=== PATIENT | female | born 2000 | race Caucasian/White ===

== ENCOUNTER 2019-07-11 18:47 | Emergency (ER) | payer OTHER ==
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
[2019-07-11 19:57] VITALS: BP 99/73
== END 2019-07-11 20:00 | disposition home or self-care (01) ==
LOC: ED 18:47
DX: S61.215A Laceration without foreign body of left ring finger without damage to nail, initial encounter (principal); W26.0XXA Contact with knife, initial encounter; Y92.009 Unspecified place in unspecified non-institutional (private) residence as the place of occurrence of the external cause
CPT/HCPCS: 12001; 99281

== ENCOUNTER 2021-11-09 22:38 | Emergency (ER) | payer OTHER ==
[2021-11-09 22:48] VITALS: BP 107/75
--- NOTE | 2021-11-09 23:27 | XRAY Report ---
PROCEDURE: Foot 3 View LT, x-ray INDICATIONS: Trauma TECHNIQUE: 3 views of the foot were acquired. COMPARISON: None FINDINGS: Bones: No fractures or dislocations. No suspicious bony lesions. Soft tissues: No tibiotalar joint effusion. Achilles tendon appears normal. IMPRESSION: Unremarkable left foot radiographs Reviewed by: Michael Vu MD on 11/09/2021 10:26 PM [facility] Approved by: Michael Vu MD on 11/09/2021 10:26 PM [facility] Station ID: [id number]
--- NOTE | 2021-11-09 23:32 | ED Physician Documentation ---
PD HPI LOWER EXT INJURY - Stated complaint Stated Complaint: LT FOOT INJ/PX - Chief complaint Chief Complaint: Ext Problem - History obtained from History obtained from: Patient - History of Present Illness PD HPI LOW EXT INJURY LOCATION: Left, Foot Type of injury: Crush Where injury occurred: Home Timing - onset: Enter time (22:00), Today Timing - details: Abrupt onset Pain level now: 8 Improved by: Rest Worsened by: Moving, Palpating Associated symptoms: Swelling Recently seen: Not recently seen - Additional information Additional information: at approximately 10 PM tonight, patient dropped a cast-iron [place] oven on her left foot, sustaining crush injury to the left foot. Unable to weight-bear due to pain Review of Systems Musculoskeletal: reports: Extremity pain, Extremity swelling, Pain with weight bearing Neurologic: denies: Focal weakness, Numbness PD PAST MEDICAL HISTORY - Past Medical History Past Medical History: Yes Neuro: Migraines Psych: Anxiety Other Past Medical History: runner's knee, insomnia - Past Surgical History Past Surgical History: No - Present Medications Home Medications: Ambulatory Orders Medication Instructions Recorded Confirmed HYDROcod/ACETAM 5/325 [[place] 5/325] 1 - 2 tablet PO Q6H PRN #14 tablet 11/09/21 Ibuprofen [Motrin] 600 mg PO Q6H PRN 11/09/21 11/09/21 Promethazine [Phenergan] 12.5 mg PO Q6H PRN 11/09/21 11/09/21 Propranolol [Inderal] 10 mg PO BID 11/09/21 11/09/21 SUMAtriptan [Imitrex] 25 mg PO DAILY 11/09/21 11/09/21 - Allergies Allergies/Adverse Reactions: Allergies Allergy/AdvReac Type Severity Reaction Status Date / Time No Known Drug Allergies Allergy Verified 07/11/19 18:54 - Social History Does the pt smoke?: No Smoking Status: Never smoker Does the pt drink ETOH?: Yes Does the pt have substance abuse?: No - Immunizations Immunizations are current?: Yes - POLST Patient has POLST: No PD ED PE NORMAL - Vitals Vital signs reviewed: Yes - General General: Alert and oriented X 3, Well developed/nourished (a), Other (appears uncomfortable due to pain) PD ED PE EXPANDED - Extremities Extremities: Other (swelling, tenderness, faint echymosis of left midfoot, dorsal surface) Results - Vitals Vitals: Vital Signs - 24 hr 11/09/21 22:44 Temperature 36.8 C Heart Rate 80 Respiratory 22 Rate Blood Pressure 107/75 O2 Saturation 99 Oxygen O2 Source Room air - Rads (name of study) left foot xrays Radiology: Prelim report reviewed, See rad report PD MEDICAL DECISION MAKING - ED course Complexity details: reviewed results, re-evaluated patient, considered differential, d/w patient ED course: presents after sustaining crush injury to left foot. xrays are without abnormalities. She is given crutches to minimize weight-bearing and PO oxycodone with rx for same for pain control. Departure - Departure Disposition: 01 Home, Self Care Clinical Impression: Crush injury of foot Condition: Good Instructions: ED Contusion Foot, ED Crutch Walking Follow-Up: ANGEL Mayers [Provider Group] (4-5 days) Prescriptions: HYDROcod/ACETAM 5/325 [[place] 5/325] 1 - 2 tablet PO Q6H PRN #14 tablet PRN Reason: Pain Comments: Your xrays do not show any evidence of fracture (no broken bones). Use the crutches for 2-3 days and then as needed (you can weight-bear as tolerated but try to minimize weight-bearing for the next 2-3 days using the crutches). Keep the foot elevated when resting, ideally at or above the level of your heart. A prescription for hydrocodone with acetaminophen (pain medication) has been electronically submitted to [facility] in [place]. Do not drive for a minimum of six hours after taking this medication (and then only if you do not feel side effect such as drowsiness). Forms: Activity restrictions Discharge Date/Time: 11/10/21 00:13
[2021-11-09] MEDS ORDERED: oxyCODONE 5 MG TABLET PO STA (23:48)
== END 2021-11-10 00:13 | disposition home or self-care (01) ==
LOC: ED 22:38
DX: S97.82XA Crushing injury of left foot, initial encounter (principal); W22.8XXA Striking against or struck by other objects, initial encounter; Y92.009 Unspecified place in unspecified non-institutional (private) residence as the place of occurrence of the external cause
CPT/HCPCS: 73630; 99283; A9270

== ENCOUNTER 2021-11-22 08:30 | Outpatient (CLI) | payer OTHER ==
--- NOTE | 2021-11-22 16:49 | MRI Report ---
PROCEDURE: Brain W/O INDICATIONS: MIGRAINE TECHNIQUE: Noncontrast axial T1 spin echo, axial T2 fast spin echo, sagittal and axial FLAIR, coronal T2 fast sp in echo, axial gradient echo, axial diffusion and ADC through the brain. COMPARISON: None. FINDINGS: Image quality: Degraded by susceptibility artifact of unknown origin. CSF Spaces: Basal cisterns are patent. No extra-axial fluid collections. Ventricles are normal in size and shape. Brain: No intracranial masses or hemorrhage. Brown/white matter interface is normal. Brainstem appe ars normal. Diffusion-weighted images demonstrate no acute ischemic insult. No chronic ischemic ins ults. Normal intravascular flow voids are present. Skull and face: Calvarium has normal marrow signal. Orbits appear normal. Sinuses: Sinuses and mastoids are clear. IMPRESSION: 1. No intracranial disease process. 2. No abnormal intracranial mass or mass effect. 3. No intracranial hemorrhage within limitations related to susceptibility artifact. Reviewed by: Alida Coyle MD, PhD on 11/22/2021 4:48 PM PST Approved by: Alida Coyle MD, PhD on 11/22/2021 4:48 PM PST Station ID: [id number]
== END 2021-11-22 08:31 | disposition home or self-care (01) ==
LOC: DI 08:30
PROVIDERS: ATTEND Physician Assistant
DX: G43.109 Migraine with aura, not intractable, without status migrainosus (principal)

== ENCOUNTER 2022-04-24 19:54 | Emergency (ER) | payer OTHER ==
[2022-04-24 20:03] VITALS: BP 111/69
== END 2022-04-24 21:57 | disposition left against medical advice (07) ==
LOC: ED 19:54
DX: Z53.21 Procedure and treatment not carried out due to patient leaving prior to being seen by health care provider (principal)

== ENCOUNTER 2023-02-18 21:31 | Emergency (ER) | payer OTHER ==
[2023-02-18 21:56] LABS: MUDS CUTOFF CONCENTRATIONS CUTOFF CONC BELOW:
[2023-02-18 21:58] LABS: BILIRUBIN,URINE NEGATIVE (NEGATIVE); GLUCOSE, URINE (UA) NEGATIVE (NEGATIVE); KETONES,URINE (UA) 15 mg/dL (NEGATIVE); LEUKOCYTE ESTERASE, URINE NEGATIVE (NEGATIVE); NITRITE,URINE POSITIVE (NEGATIVE); OCCULT BLOOD,URINE NEGATIVE (NEGATIVE); PROTEIN,URINE TRACE mg/dL (NEGATIVE); UROBILINOGEN,URINE 2 E.U./dL (NORMAL)
[2023-02-18 22:00] LABS: HCG UR QUAL NEGATIVE
[2023-02-18 22:01] LABS: CLARITY,URINE HAZY (CLEAR)
[2023-02-18 22:07] LABS: BASOPHILS % (AUTO) 0.3 %; EOSINOPHILS % (AUTO) 0.5 %; HCT - HEMATOCRIT 35.8 % (37.0-47.0); HGB - HEMOGLOBIN 11.8 g/dL (12.0-16.0); LYMPHOCYTES # (AUTO) 1.6 10^3/uL (1.5-3.5); LYMPHOCYTES % (AUTO) 26.9 %; MEAN CORPUSCULAR HEMOGLOBIN 29.3 pg (27.0-31.0); MEAN CORPUSCULAR VOLUME 88.8 fL (81.0-99.0); MEAN PLATELET VOLUME 11.9 fL (7.9-10.8); MONOCYTES # (AUTO) 0.5 10^3/uL (0.0-1.0); MONOCYTES % (AUTO) 8.6 %; NEUTROPHILS # (AUTO) 3.7 10^3/uL (1.5-6.6); NEUTROPHILS % (AUTO) 63.5 %; PLT - PLATELET COUNT 170 10^3/uL (130-450); RED BLOOD COUNT 4.03 10^6/uL (4.20-5.40); RED CELL DISTRIBUTION WIDTH 12.6 % (12.0-15.0); WHITE BLOOD COUNT 5.8 x10^3/uL (4.8-10.8)
[2023-02-18 22:08] LABS: AMPHETAMINE SCREEN,URINE NEGATIVE (NEGATIVE); BENZODIAZEPINES SCREEN, URINE NEGATIVE (NEGATIVE); COCAINE SCREEN URINE NEGATIVE (NEGATIVE); METHAMPHETAMINES SCREEN, URINE NEGATIVE (NEGATIVE); OPIATE SCREEN, URINE NEGATIVE (NEGATIVE); THC CANNABINOID SCREEN, URINE NEGATIVE (NEGATIVE); TRICYCLIC ANTIDEPRESSANT,URINE NEGATIVE (NEGATIVE)
[2023-02-18 22:09] LABS: BACTERIA,URINE Many /HPF (None Seen); BARBITURATE SCREEN,UR NEGATIVE (NEGATIVE); METHADONE SCREEN, URINE NEGATIVE (NEGATIVE); MUCUS,URINE Few Strands; OXYCODONE SCREEN, URINE NEGATIVE (NEGATIVE); PROPOXYPHENE SCREEN, URINE NEGATIVE (NEGATIVE); RBC,URINE 0-5 /HPF (0-5); SQUAMOUS EPITHELIAL CELL,UR MANY Squamous (<= Few)
[2023-02-18 22:21] LABS: ACETAMINOPHEN < 10 ug/mL (10-30); ETOH - ETHANOL < 5.0 mg/dL; SALICYLATE < 6.0 mg/dL
[2023-02-18 22:45] LABS: ALBUMIN 4.4 g/dL (3.2-5.5); ALBUMIN/GLOBULIN RATIO 1.4 (1.0-2.2); ALKALINE PHOSPHATASE 46 IU/L (42-121); ALT ALANINE AMINOTRANSFERASE 16 IU/L (10-60); AST ASPARTATE AMINOTRANSFERASE 17 IU/L (10-42); BILIRUBIN,TOTAL 0.6 mg/dL (0.2-1.0); BUN - BLOOD UREA NITROGEN 18 mg/dL (6-20); CALCIUM 8.9 mg/dL (8.5-10.3); CARBON DIOXIDE - CO2 26 mmol/L (21-32); CHLORIDE 105 mmol/L (101-111); CREATININE 0.8 mg/dL (0.4-1.0); GFR - MDRD 89 (>89); GLUCOSE 93 mg/dL (70-100); LIPASE 31 U/L (22-51); POTASSIUM 3.7 mmol/L (3.5-5.0); SODIUM 140 mmol/L (135-145); TOTAL PROTEIN 7.6 g/dL (6.7-8.2)
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
[2023-02-19] MEDS ORDERED: VENLAFAXINE 37.5 MG TABLET PO SCH (07:00)
--- NOTE | 2023-02-19 08:58 | ED Physician Documentation ---
ED Addendum - Addendum Addendum: Patient has been signed out to me by overnight provider. She is voluntary for psychiatric placement. 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 A social work consult has been placed. 02/19/23 10:03 D/W Dr. Bruce ([facility], Psychiatry). Has excepted the patient for transfer. Departure - Departure Disposition: 65 Psych Hosp/Unit DC/Xfer Clinical Impression: Depression, Suicidal ideation Condition: Stable
[2023-02-19 09:28] VITALS: BP 118/73
== END 2023-02-19 15:03 ==
LOC: ED 21:31
DX: F32.2 Major depressive disorder, single episode, severe without psychotic features (principal); R45.851 Suicidal ideations; Z20.822 Contact with and (suspected) exposure to COVID-19
CPT/HCPCS: 36415; 80053; 80306; 80307; 80320; 80329; 81001; 81025; 83690; 84443; 85025; 87635; 99285; A9270; G0425; Q3014; 81003; 87086

== ENCOUNTER 2023-05-08 15:32 | Outpatient (CLI) | payer OTHER ==
--- NOTE | 2023-05-09 08:22 | MRI Report ---
PROCEDURE: BRAIN WO INDICATIONS: HEADACHE TECHNIQUE: Noncontrast axial T1 spin echo, axial T2 fast spin echo, sagittal and axial FLAIR, coronal T2 fast sp in echo, axial gradient echo, axial diffusion and ADC through the brain. COMPARISON: 11/22/2021 FINDINGS: Image quality: Excellent. CSF Spaces: Basal cisterns are patent. No extra-axial fluid collections. Ventricles are normal in size and shape. Brain: No intracranial masses or hemorrhage. Brown/white matter interface is normal. Brainstem appe ars normal. Diffusion-weighted images demonstrate no acute ischemic insult. No chronic ischemic ins ults. Normal intravascular flow voids are present. Skull and face: Calvarium has normal marrow signal. Orbits appear normal. Sinuses: Sinuses and mastoids are clear. IMPRESSION: 1. No acute process. 2. No recent infarct. 3. No explanation for headache. Reviewed by: Dago Garcia MD on 05/09/2023 8:21 AM PDT Approved by: Dago Garcia MD on 05/09/2023 8:21 AM PDT Station ID: [id number]
== END 2023-05-08 15:33 | disposition home or self-care (01) ==
LOC: DI 15:32
PROVIDERS: ATTEND Physician Assistant
DX: R20.2 Paresthesia of skin (principal); R51.9 Headache, unspecified

== ENCOUNTER 2024-02-13 13:59 | Outpatient (CLI) | payer OTHER ==
--- NOTE | 2024-02-16 09:20 | Ultrasound Report ---
LIMITED ULTRASOUND OF RIGHT BREAST: 02/13/2024 CLINICAL: Palpable right breast lump. No prior exams were available for comparison. Color flow and real-time ultrasound of the right breast 1 o'clock region were performed. Brown scale images of the real-time examination were reviewed. There is a 1.6 cm x 1.2 cm x 1.1 cm oval mass with a circumscribed margin in the right breast at 1 o' clock anterior depth 3 cm from the nipple. This oval mass displays a well-defined boundary and poste rior acoustic enhancement. This correlates as palpated. Color flow imaging demonstrates that there is vascularity present. IMPRESSION: SUSPICIOUS OF MALIGNANCY The 1.6 cm x 1.2 cm x 1.1 cm oval mass in the right breast corresponds to the palpable abnormality , most likely is a fibroadenoma and is at a low suspicion for malignancy. An ultrasound guided biopsy is recommended. Findings and recommendations were discussed with the patient in person by Dr. Harry townsend at time of exam. This exam was interpreted at Station ID: [id number]. Electronically Signed By: Grace hutchins/:02/13/2024 15:21:46 Ultrasound BI-RADS: 4a Low suspicion for malignancy BI-RADS CATEGORY: (4a) - Low Susp Biopsy [id number] Immediate follow-up LATERALITY: (R)
== END 2024-02-13 14:00 | disposition home or self-care (01) ==
LOC: DI 13:59
PROVIDERS: ATTEND Nurse Practitioner Family
DX: N63.12 Unspecified lump in the right breast, upper inner quadrant (principal)

== ENCOUNTER 2024-03-05 09:51 | Outpatient (CLI) | payer OTHER ==
[2024-03-05] MEDS ORDERED: LIDOCAINE 1%-EPI 1:100000 20 ML MDV ONE (10:07)
[2024-03-05] MEDS ORDERED: LIDOCAINE-MPF 1% 5 ML VIAL ONE (10:08)
[2024-03-05] MEDS: LIDOCAINE-MPF 1% 5 ML VIAL TD ONE (11:40)
[2024-03-05] MEDS: LIDOCAINE 1%-EPI 1:100000 20 ML MDV SUBQ ONE (11:41)
--- NOTE | 2024-03-10 10:11 | Ultrasound Report ---
ULTRASOUND GUIDED BIOPSY RIGHT BREAST USING VACUUM DEVICE WITH MARKING DEVICE INSERTED AND POST ULTRA SOUND IMAGIN03/05/2024 CLINICAL: Palpable right breast lump. PATIENT CONSENT: Risks (minor bleeding, infection, vasovagal reaction and repeat procedure), benefits and alternatives were explained to the patient and written informed consent was obtained. Correlation is made to exam dated: 02/13/2024 ultrasound - [facility]. An ultrasound guided biopsy using real-time ultrasound was performed for the palpable 1.3 cm x 1.2 cm x 1.1 cm microlobulated oval mass located in the right breast at 1 o'clock anterior depth 3 cm from the nipple. This was described on the previous ultrasound report. The skin was prepped in the usual manner. Local anesthetic was administered to the access site. A skin vaughn was made in the breast. The abnormality was approached from the lateral aspect. A 12 gauge biopsy needle was placed adjacen t to the abnormality under ultrasound guidance. Once the needle was documented to be in the correct location, four cores were obtained using the Mammotome biopsy system. The patient received additiona l local anesthetic during the procedure. A hydroMark clip was inserted into the biopsy cavity. A sk in adhesive and a sterile dressing were applied to the access site. Post procedure ultrasound imagin g demonstrates the location device at the targeted area. The specimens were sent to the laboratory f or pathological analysis. IMPRESSION: ULTRASOUND GUIDED BIOPSY BENIGN Ultrasound guided biopsy of the 1.3 cm x 1.2 cm x 1.1 cm mass in the right breast at 1 o'clock anteri or depth 3 cm from the nipple was successful with no apparent post procedure complications. Patholog y indicates benign fibroadenoma (FA). Pathology results are concordant with imaging findings. Recommend clinical follow up. This exam was interpreted at Station ID: [id number]. Zi Grady M.D. [facility] – [place]/:03/09/2024 18:32:59 BI-RADS CATEGORY: () - Unspecified - other recall n/a LATERALITY: (B)
== END 2024-03-05 09:52 | disposition home or self-care (01) ==
LOC: DI 09:51
PROVIDERS: ATTEND Nurse Practitioner Family
DX: D24.1 Benign neoplasm of right breast (principal)
CPT/HCPCS: 19083